=== PATIENT | female | born 1940 | race African-American/Black ===

== ENCOUNTER 2024-01-18 06:18 | Day surgery (SDC) | payer OTHER, SELFPAY ==
[2024-01-18 07:58] VITALS: BMI 37.8
[2024-01-18 08:00] VITALS: BMI 37.8
[2024-01-18 08:02] VITALS: BMI 37.8
[2024-01-18 08:16] VITALS: BP 155/63
[2024-01-18 10:27] VITALS: BP 80/46
[2024-01-18 10:30] VITALS: BP 99/46
[2024-01-18 10:45] VITALS: BP 132/82
[2024-01-18 10:58] VITALS: BP 127/87
== END 2024-01-18 11:10 | disposition home or self-care (01) ==
LOC: SDS 06:18
PROVIDERS: ATTENDING PHYSICIAN Internal Medicine Gastroenterology
DX: K62.89 Other specified diseases of anus and rectum (principal)
CPT/HCPCS: 45341

== ENCOUNTER 2024-01-18 11:26 | Emergency (ER) | payer OTHER, SELFPAY ==
[2024-01-18 11:36] VITALS: BP 162/74
[2024-01-18 12:17] VITALS: BMI 41.5
--- NOTE | 2024-01-18 12:33 | ED.GENMED ---
History of Present Illness
General
Chief Complaint: Abdominal Symptoms
Time Seen by Provider: 01/18/24 12:10
History of Present Illness
History of Present Illness:
83-year-old female with history of prior PE no longer on anticoagulation, hypertension and hyperlipidemia presents to the emergency department for evaluation of symptoms developing after colonoscopy today. Has previously undergone colonoscopies
with anesthesia and has not had any complications. States when awakening from anesthesia today she had 'constant spitting up' and a 'Lump in the chest'. Her symptoms have since subsided. No nausea or vomiting. Denies any chest pain or dyspnea at
this point. No fevers or chills. There was no hemoptysis
Past History
Past History
ED Past Medical History: GERD, HTN, Hypercholesterolemia and Other (PE 2015, small bowel obstruction 2018)
ED Past Surgical History: Gynecological
Social History
Tobacco: Non-smoker
Alcohol: None
Personal:
Living: with family
Employment: Retired
Family History
Family History: Other (Noncontributory)
Review of Systems
Review of Systems
Allergies reviewed?: Yes
All Other Systems: ROS reviewed and negative except as documented in HPI and ROS
Phy Exam
Physical Exam
Physical Exam:
GEN: Well appearing, NAD, WDWN
Eyes: PERRLA, EOMs intact, no scleral icterus
HENT: NCAT, oral mucosa moist
Lungs: CTAB, no wheezes, rales, rhonchi, normal chest wall excursion
Cardiac: RRR, no M/R/G, no peripheral edema. Radial pulses 2+ bilat
Abdomen: S, NT, ND, NABS, no masses or hepatosplenomegaly
Neuro: AO x 3
MSK: No gross deformity or ecchymosis. No edema. No digital clubbing
Skin: No rashes, petechiae. Normal color, no pallor or jaundice.
Psych: Calm, cooperative, proper hygiene
Course
Orders/Labs/Results
Orders:
Orders
01/18/24 11:40
Electrocardiogram (*1) Urgent
Reason for Study: Fatigue / Weakness
EKG- Treatment ONCE
01/18/24 12:18
CR Chest - 2 Views Urgent
Comment:
Reason For Exam: L chest discomfort after anesthesia
01/18/24 11:40
01/18/24 11:40
Vital Signs
Initial and Last Documented VS:
Initial Vital Signs
Temp Pulse Resp BP Pulse Ox
98.0 F 60 16 162/74 98
01/18/24 11:36 01/18/24 11:36 01/18/24 11:36 01/18/24 11:36 01/18/24 11:36
Last Documented Vital Signs
Temp Pulse Resp BP Pulse Ox
98.0 F 73 16 162/74 99
01/18/24 11:36 01/18/24 13:53 01/18/24 13:53 01/18/24 11:36 01/18/24 13:53
MDM/Problems Addressed
MDM/Problems Addressed:
Patient's symptoms are likely GERD induced by anesthesia, no evidence for myocardial injury on EKG, she has no active chest pain at this time. Chest x-ray is unremarkable. Low clinical suspicion for pulmonary embolism
Comment
Comment:
EKG independently interpreted by me is limited due to patient motion artifact however there are diffuse flattening of T waves that is comparable to past EKG
*Critical Care Note
Total Time (30-74mins, 75-104mins- exclusive of procedures): Not Applicable
ED Attending Note
-
Portions of this chart may have been created with voice recognition software.� Occasional wrong word or��sound alike� substitutions may have occurred due to the inherent limitations of voice recognition software.
Discharge Plan
Departure
Patient Disposition: Home (Routine Discharge)
Date of Disposition: 01/18/24
Time of Disposition: 13:44
Patient with high blood pressure during this ER visit?: No
Discharge Problem:
Atypical chest pain
Instructions: Moderate Sedation in Adults (DC)
Prescriptions:
No Action
esomeprazole magnesium [Nexium] 40 MG capsule,delayed release(DR/EC)
40 mg PO DAILY
montelukast 10 MG tablet
10 mg PO DAILY
mometasone [Nasonex] 17 GM spray,non-aerosol
2 spray intranasal DAILY
atorvastatin 20 MG tablet
20 mg PO DAILY
meloxicam 7.5 MG tablet
7.5 mg PO DAILYPRN PRN (Reason: pain)
valsartan-hydrochlorothiazide [Diovan HCT] 1 EACH tablet
1 tab PO DAILY
amlodipine 5 MG tablet
5 mg PO DAILY
aspirin [Aspir-Low] 81 MG tablet,delayed release (DR/EC)
81 mg PO DAILY
albuterol sulfate 2.5 mg /3 mL (0.083 %) solution for nebulization
2.5 mg inhalation QID PRN (Reason: shortness of breath or wheezing) Qty: 180 0RF
Fleet Enema 19-7 gram/118 mL Enema
118 ml WA ONCE
Referrals:
Katy Pena CRNP [Family Provider] -
Activity Restrictions/Additional Instructions:
I suspect your symptoms were acid reflux/indigestion related to the anesthesia
Interventions
Interventions:
*Risk Screen - Suicide Last Done: 01/18/24 12:17
*General Assessment Last Done: 01/18/24 12:17
*Neglect/Abuse Screening Last Done: 01/18/24 12:17
ED- Fall Risk Assessment Last Done: 01/18/24 13:53
*ED COVID-19 Vaccine History Last Done: 01/18/24 12:17
*Nursing Disposition Last Done: 01/18/24 13:53
XQ-Eeitla-Hqqviejjfq Assessment Last Done: 01/18/24 12:17
Discharge Date and Time
Discharge Date/Time: 01/18/24 13:55
Print Language: LAO
== END 2024-01-18 13:55 | disposition home or self-care (01) ==
LOC: EMR 11:26
PROVIDERS: EMERGENCY PHYSICIAN Emergency Medicine; FAMILY PHYSICIAN Nurse Practitioner
DX: R07.89 Other chest pain (principal); I10 Essential (primary) hypertension; E78.00 Pure hypercholesterolemia, unspecified
CPT/HCPCS: 99284; 71046; 93005

== ENCOUNTER 2024-11-29 09:08 | Emergency (ER) | payer OTHER, MEDICARE, SELFPAY ==
[2024-11-29 09:11] VITALS: BP 156/78
--- NOTE | 2024-11-29 11:04 | ED.GENMED ---
History of Present Illness
General
Chief Complaint: Dizziness
Time Seen by Provider: 11/29/24 10:31
History of Present Illness
History of Present Illness:
84-year-old female history of hypertension, hyperlipidemia, PE on baby aspirin presenting with dizziness described as lightheadedness starting yesterday morning. Patient states that she feels better when she sits or lays down, worse with standing
up. Patient reports posterior headache which is chronic, unchanged from baseline. Patient denies numbness, weakness, tingling, visual changes, chest pain or shortness of breath. Patient reports cough for months have been worsening. Patient
states she has been eating and drinking okay. Patient denies dysuria or hematuria. Patient denies dizziness currently. Patient states she has been eating/drinking well.
Past History
Past History
ED Past Medical History: GERD, HTN, Hypercholesterolemia and Other (PE 2014, small bowel obstruction 2018)
ED Past Surgical History: Gynecological
Social History
Tobacco: Non-smoker
Alcohol: None
Personal:
Living: with family
Employment: Retired
Family History
Family History: Other (Noncontributory)
Phy Exam
Physical Exam
Physical Exam:
General: Alert, no acute distress
Head: NCAT
Eyes: clear conjunctiva. PERRLA, EOMI. No nystagmus.
Neck: supple
Cardiac: regular rate and rhythm, no murmur
Lungs: clear to auscultation bilaterally. No wheezes, rales, or rhonchi. Speaking full unlabored sentences. No respiratory distress.
Abdomen: soft, nondistended nontender. No rebound or guarding.
MSK: no lower extremity edema bilaterally. No deformity
Skin: warm, dry
Neuro: Alert and oriented x3. Cranial nerves II through XII grossly intact with no focal deficits. 5-5 strength bilateral upper and lower extremities. No pronator drift. Sensation intact throughout. Normal finger-nose.
Course
Orders/Labs/Results
Orders:
Orders
11/29/24 11:03
EKG [Electrocardiogram (*1)] Urgent
Reason for Study: Vertigo / Dizzy
EKG- Treatment ONCE
11/29/24 11:04
0.9% Sodium Chloride 1000 ml [Nss] 1,000 ml IV BOLUS
CXR2 [CR Chest - 2 Views ] Urgent
Comment:
Reason For Exam: cough
11/29/24 12:11
CBC/With Diff [Complete Blood Count/With Diff] Urgent
11/29/24 14:37
Comprehensive Metabolic Panel Urgent
11/29/24 16:09
Acetaminophen [Tylenol] 1,000 mg PO NOW STA
Abnormal Lab Results
11/29/24 11/29/24
12:11 14:37
MCHC 31.1 L g/dL
(33.0-37.0)
RDW 16.5 H %
(11.5-14.5)
Chloride 112 H mmol/L
(98-107)
11/29/24 12:11
11/29/24 14:37
Vital Signs
Initial and Last Documented VS:
Initial Vital Signs
Temp Pulse Resp BP Pulse Ox
97.4 F 72 16 156/78 99
11/29/24 09:11 11/29/24 09:11 11/29/24 09:11 11/29/24 09:11 11/29/24 09:11
Last Documented Vital Signs
Temp Pulse Resp BP Pulse Ox
97.4 F 53 19 150/77 98
11/29/24 09:11 11/29/24 14:45 11/29/24 14:45 11/29/24 12:16 11/29/24 14:45
MDM/Problems Addressed
Differential Diagnosis Includes:
NOEMI, electrolyte abnormality, anemia, pneumonia
MDM/Problems Addressed:
84-year-old female presenting with dizziness described as lightheadedness starting yesterday. Patient reports chronic posterior headache which feels the same as her normal headaches. Otherwise patient neurologically intact no focal deficits. Labs
reviewed, unremarkable. Hemoglobin 14. Electrolytes, creatinine within normal limits. Chest x-ray clear with no focal infiltrate or consolidation. On reevaluation, patient reports improvement in symptoms, denies any dizziness at that time.
Stable for discharge with PCP follow
*EKG
Interpreted by ED Provider?: Yes (EKG shows normal sinus rhythm at 64 bpm with ID [id number] QTc 425 no acute ischemic changes)
*Critical Care Note
Total Time (30-74mins, 75-104mins- exclusive of procedures): Not Applicable
ED Attending Note
-
Portions of this chart may have been created with voice recognition software.� Occasional wrong word or��sound alike� substitutions may have occurred due to the inherent limitations of voice recognition software.
Discharge Plan
Departure
Patient Disposition: Home (Routine Discharge)
Date of Disposition: 11/29/24
Time of Disposition: 15:54
Patient with high blood pressure during this ER visit?: Yes
Discharge Problem:
Dizziness
Instructions: Dizziness, BLOOD PRESSURE
Prescriptions:
No Action
esomeprazole magnesium [Nexium] 40 MG capsule,delayed release(DR/EC)
40 mg PO DAILY
montelukast 10 MG tablet
10 mg PO DAILY
mometasone [Nasonex] 17 GM spray,non-aerosol
2 spray intranasal DAILY
atorvastatin 20 MG tablet
20 mg PO DAILY
meloxicam 7.5 MG tablet
7.5 mg PO DAILYPRN PRN (Reason: pain)
valsartan-hydrochlorothiazide [Diovan HCT] 1 EACH tablet
1 tab PO DAILY
amlodipine 5 MG tablet
5 mg PO DAILY
aspirin [Aspir-Low] 81 MG tablet,delayed release (DR/EC)
81 mg PO DAILY
albuterol sulfate 2.5 mg /3 mL (0.083 %) solution for nebulization
2.5 mg inhalation QID PRN (Reason: shortness of breath or wheezing) Qty: 180 0RF
Fleet Enema 19-7 gram/118 mL Enema
118 ml ID ONCE
Referrals:
Pcp Selection Not Required, [Other]
Marylou Bustillo CRNP [Family Provider, Family Practice]
Stand Alone Forms: Return to Work
Activity Restrictions/Additional Instructions:
Drink plenty of water, stay hydrated
Follow-up with primary care doctor in 1 to 2 days
Return to the emergency department for numbness, weakness, tingling or new/worsening symptoms
Interventions
Interventions:
*Risk Screen - Suicide Last Done: 11/29/24 09:11
*Neglect/Abuse Screening Last Done: 11/29/24 09:11
Discharge Date and Time
Print Language: SLOVENIAN
[2024-11-29 11:43] VITALS: BP 156/73
[2024-11-29] MEDS: NSS 1000 IV (12:10)
[2024-11-29 12:14] VITALS: BMI 35.7
[2024-11-29 12:16] VITALS: BP 150/77
[2024-11-29 12:26] LABS: % Basophils 0.3 % (0-2); % Eosinophils 0.2 % (0-6); % Immature Granulocytes 0.3 % (0-0.5); % Lymphocytes 38.8 % (20.5-51.1); % Monocytes 6.5 % (1.7-9.3); % Neutrophils 53.9 % (42.2-75.2); Absolute Lymphocytes 2.4 10^3/uL (1.2-3.4); Absolute Monocytes 0.4 10^3/uL (0.1-0.6); Absolute Neutrophils 3.4 10^3/uL (1.4-6.5); Mean Corp Hgb Conc. 31.1 g/dL (33.0-37.0); Mean Corpuscular Hgb 27.1 pg (27.0-31.0); Mean Corpuscular Volume 87.2 fL (81.0-99.0); Mean Platelet Volume 9.4 fL (7.4-10.4); Nucleated Red Blood Cells % 0 %; Platelet Count 259 10^3/uL (130-400); Red Blood Cell Count 5.16 10^6/uL (4.20-5.40); Red Cell Dist. Width 16.5 % (11.5-14.5); White Blood Cell Count 6.3 10^3/uL (4.8-10.8)
[2024-11-29 14:58] LABS: ALT (SGPT) 15 U/L (0-35); AST (SGOT) 24 U/L (14-36); Albumin 4.2 g/dl (3.5-5.0); Alkaline Phosphatase 62 U/L (38-126); Blood Urea Nitrogen 10 mg/dl (7-17); Calcium 9.2 mg/dl (8.4-10.2); Carbon Dioxide 27 mmol/L (22-30); Chloride 112 mmol/L (98-107); Estimated Creatinine Clearance 53 ml/min; Glucose 87 mg/dl (70-99); Potassium 4.6 mmol/L (3.5-5.1); Sodium 142 mmol/L (135-145); Total Bilirubin 0.6 mg/dl (0.2-1.3); Total Protein 7.1 g/dl (6.3-8.2); eGFR > 60.00
[2024-11-29] MEDS: TYLENOL 1000 MG PO (16:13)
== END 2024-11-29 16:00 | disposition home or self-care (01) ==
LOC: EMR 09:08
PROVIDERS: EMERGENCY PHYSICIAN Emergency Medicine; FAMILY PHYSICIAN Nurse Practitioner Family
DX: R42 Dizziness and giddiness (principal); E78.00 Pure hypercholesterolemia, unspecified; K21.9 Gastro-esophageal reflux disease without esophagitis; I10 Essential (primary) hypertension; Z86.711 Personal history of pulmonary embolism
CPT/HCPCS: 99283; 96360; 71046; 80053; 85025; 93005

== ENCOUNTER 2025-04-15 08:41 | Emergency (ER) | payer OTHER, MEDICARE, SELFPAY ==
[2025-04-15 08:45] VITALS: BP 175/96
--- NOTE | 2025-04-15 09:05 | ED.GENMED ---
History of Present Illness
General
Chief Complaint: Breathing Problem
Source: patient
Exam Limitations: none
Time Seen by Provider: 04/15/25 08:50
History of Present Illness
History of Present Illness:
84-year-old female with history of hypertension hyperlipidemia and PE currently on baby aspirin presents with shortness of breath with exertion and lightheadedness. She denies chest pain. No recent travel or surgery. No leg swelling. She notes a
productive cough with clear sputum. She denies hemoptysis. No chest pain. No abdominal pain or vomiting. She has been eating and drinking well. No fevers. No other complaints at this time
Past History
Past History
ED Past Medical History: GERD, HTN, Hypercholesterolemia and Other (PE 2015, small bowel obstruction 2018)
ED Past Surgical History: Gynecological
Social History
Tobacco: Non-smoker
Alcohol: None
Personal:
Living: with family
Employment: Retired
Family History
Family History: Other (Noncontributory)
Phy Exam
Physical Exam
Physical Exam:
General: Well-appearing female no acute respiratory distress
HEENT normal cephalic atraumatic
Heart: Regular rate and rhythm
Lungs are clear throughout without any wheeze
Abdomen is soft nontender nondistended
Extremities: No cyanosis or
Skin warm no rash
Scores
Heart Failure Risk
Heart Failure Risk Score: Not Applicable
Course
Orders/Labs/Results
Orders:
Orders
04/15/25 09:04
Electrocardiogram (*1) Urgent
Reason for Study: Shortness of Breath
EKG- Treatment ONCE
04/15/25 09:20
Complete Blood Count/With Diff Urgent
Comprehensive Metabolic Panel Urgent
NT-proBNP Urgent
Troponin I Urgent
04/15/25 09:34
D-Dimer Urgent
04/15/25 10:21
CT Chest PE Study Urgent
Comment:
Reason For Exam: sob, elevated d-dimer
Abnormal Lab Results
04/15/25 04/15/25
09:20 09:34
MCH 26.0 L pg
(27.0-31.0)
MCHC 30.2 L g/dL
(33.0-37.0)
RDW 15.7 H %
(11.5-14.5)
D-Dimer 1.14 H ug/mlFEU
(0.00-0.50)
Chloride 108 H mmol/L
(98-107)
BUN 26 H mg/dl
(7-17)
04/15/25 09:20
04/15/25 09:20
Vital Signs
Initial and Last Documented VS:
Initial Vital Signs
Temp Pulse Resp BP Pulse Ox
97.9 F 72 18 175/96 92
04/15/25 08:45 04/15/25 08:45 04/15/25 08:45 04/15/25 08:45 04/15/25 08:45
Last Documented Vital Signs
Temp Pulse Resp BP Pulse Ox
97.9 F 55 18 184/71 99
04/15/25 08:45 04/15/25 13:00 04/15/25 13:00 04/15/25 11:42 04/15/25 13:00
MDM/Problems Addressed
Differential Diagnosis Includes:
Patient with shortness of breath with exertion and lightheadedness. She notes ongoing headaches which is a chronic thing. History of PE and currently on a baby aspirin. She states she was not able to identify a cause of her PE in the past.
Differential today could include anemia electrolyte abnormality kidney injury versus PE or pneumonia
Will initiate workup with EKG troponin D-dimer BNP. No respiratory distress currently.
*Pulse Oximetry
SaO2: 92
Oxygen Mode of Delivery: Room air
Patient hypoxic: no
*Critical Care Note
Total Time (30-74mins, 75-104mins- exclusive of procedures): Not Applicable
Update Note
Update Note:
EKG shows sinus rhythm with a rate of 60 no ischemic changes
D-dimer slightly elevated this prompted a CT of the chest which was negative for pulmonary embolism. Labs reviewed and are normal otherwise including troponin and BNP. Patient looks well here. No emergent need for admission to hospital but will
advise follow-up with cardiology secondary to dyspnea on exertion
ED Attending Note
-
Portions of this chart may have been created with voice recognition software.� Occasional wrong word or��sound alike� substitutions may have occurred due to the inherent limitations of voice recognition software.
Discharge Plan
Departure
Patient Disposition: Home (Routine Discharge)
Date of Disposition: 04/15/25
Time of Disposition: 13:11
Patient with high blood pressure during this ER visit?: No
Discharge Problem:
Exertional dyspnea
Instructions: Shortness of Breath (Dyspnea) (DC), *DCA Heart Failure Instructions
Prescriptions:
No Action
esomeprazole magnesium [Nexium] 40 MG capsule,delayed release(DR/EC)
40 mg PO DAILY
montelukast 10 MG tablet
10 mg PO DAILY
mometasone [Nasonex] 17 GM spray,non-aerosol
2 spray intranasal DAILY
atorvastatin 20 MG tablet
20 mg PO DAILY
meloxicam 7.5 MG tablet
7.5 mg PO DAILYPRN PRN (Reason: pain)
valsartan-hydrochlorothiazide [Diovan HCT] 1 EACH tablet
1 tab PO DAILY
amlodipine 5 MG tablet
5 mg PO DAILY
aspirin [Aspir-Low] 81 MG tablet,delayed release (DR/EC)
81 mg PO DAILY
albuterol sulfate 2.5 mg /3 mL (0.083 %) solution for nebulization
2.5 mg inhalation QID PRN (Reason: shortness of breath or wheezing) Qty: 180 0RF
Fleet Enema 19-7 gram/118 mL Enema
118 ml SD ONCE
Referrals:
Carol Carrasco CRNP [Family Provider, General]
Activity Restrictions/Additional Instructions:
Please return here for any worsening symptoms otherwise follow-up with your doctor and/or general laborer
Interventions
Interventions:
*Risk Screen - Suicide Last Done: 04/15/25 08:45
*General Assessment Last Done: 04/15/25 08:45
ED- Cardiac Assessment Last Done: 04/15/25 09:42
ED- Pulmonary Assessment Last Done: 04/15/25 09:42
Discharge Date and Time
Print Language: OCCITAN
[2025-04-15 09:35] LABS: Hematocrit 43.0 % (37.0-47.0); Hemoglobin 13.0 g/dL (12.0-16.0); Mean Corp Hgb Conc. 30.2 g/dL (33.0-37.0); Mean Corpuscular Volume 86.0 fL (81.0-99.0); Nucleated Red Blood Cells % 0 %; Platelet Count 270 10^3/uL (130-400); Red Cell Dist. Width 15.7 % (11.5-14.5)
[2025-04-15 09:38] VITALS: BMI 36.1
[2025-04-15 10:02] LABS: ALT (SGPT) 13 U/L (0-35); AST (SGOT) 22 U/L (14-36); Albumin 4.4 g/dl (3.5-5.0); Alkaline Phosphatase 60 U/L (38-126); Blood Urea Nitrogen 26 mg/dl (7-17); Calcium 9.5 mg/dl (8.4-10.2); Carbon Dioxide 24 mmol/L (22-30); Chloride 108 mmol/L (98-107); Estimated Creatinine Clearance 37 ml/min; Glucose 90 mg/dl (70-99); Potassium 4.5 mmol/L (3.5-5.1); Sodium 139 mmol/L (135-145); Total Protein 7.6 g/dl (6.3-8.2); Troponin I < 0.012 ng/ml; eGFR 54.87
[2025-04-15 10:15] LABS: D-Dimer 1.14 ug/mlFEU (0.00-0.50)
[2025-04-15 10:20] VITALS: BP 137/102
[2025-04-15 11:42] VITALS: BP 184/71
== END 2025-04-15 13:31 | disposition home or self-care (01) ==
LOC: EMR 08:41
PROVIDERS: Physician Assistant; EMERGENCY PHYSICIAN Student in an Organized Health Care Education/Training Program; FAMILY PHYSICIAN Nurse Practitioner Adult Health
DX: R06.02 Shortness of breath (principal); I10 Essential (primary) hypertension; E78.00 Pure hypercholesterolemia, unspecified; K21.9 Gastro-esophageal reflux disease without esophagitis; Z79.82 Long term (current) use of aspirin; Z86.711 Personal history of pulmonary embolism
CPT/HCPCS: 99284; 71275; 80053; 83880; 84484; 85025; 85379; 93005; Q9967